=== PATIENT | male | born 1960 | race Caucasian/White ===

== ENCOUNTER 2024-12-31 16:10 | Emergency (ER) | payer BC, SELFPAY ==
[2024-12-31 16:15] VITALS: BP 137/89
--- NOTE | 2024-12-31 17:54 | ED.GENMED ---
History of Present Illness
General
Chief Complaint: Back Pain
Source: patient
Exam Limitations: none
Time Seen by Provider: 12/31/24 17:39
History of Present Illness
History of Present Illness:
64-year-old male presents with muscle pain to the right thoracic area starting yesterday after golfing. He is due for another golf tour and tomorrow. He is interested in getting a trigger point as he has had these in the past with good success.
He denies any pleuritic pain. He denies shortness of breath. No rash. No numbness. No trauma otherwise. No recent travel or surgery.
Phy Exam
Physical Exam
Physical Exam:
General: WEll appearing male NAD
MSK: Point tenderness to the right paraspinous area of the lower thoracic spine. There is palpable muscle spasm in this area. No overlying rash
Lungs are clear
Course
Vital Signs
Initial and Last Documented VS:
Initial Vital Signs
Temp Pulse Resp BP Pulse Ox
98.4 F 68 16 137/89 97
12/31/24 16:15 12/31/24 16:15 12/31/24 16:15 12/31/24 16:15 12/31/24 16:15
Last Documented Vital Signs
Temp Pulse Resp BP Pulse Ox
98.4 F 68 16 137/89 97
12/31/24 16:15 12/31/24 16:15 12/31/24 16:15 12/31/24 16:15 12/31/24 16:15
MDM/Problems Addressed
Differential Diagnosis Includes:
Patient presents with muscular strain and lower thoracic area. He has been trying anti-inflammatories without relief. He has had good success with a trigger point in the past. Explained this is only a temporary fix he understood this. The area
was identified by area of point tenderness and cleansed with saline and injected with 2 cc of 1% lidocaine and 2 cc of half percent Marcaine. Band-Aid was applied.
*Pulse Oximetry
SaO2: 97
Oxygen Mode of Delivery: Room air
Patient hypoxic: no
*Critical Care Note
Total Time (30-74mins, 75-104mins- exclusive of procedures): Not Applicable
ED Attending Note
-
Portions of this chart may have been created with voice recognition software.� Occasional wrong word or��sound alike� substitutions may have occurred due to the inherent limitations of voice recognition software.
Discharge Plan
Departure
Patient Disposition: Home (Routine Discharge)
Date of Disposition: 12/31/24
Time of Disposition: 18:00
Patient with high blood pressure during this ER visit?: No
Discharge Problem:
Muscle strain of chest wall
Instructions: Upper Back Pain (DC)
Referrals:
Ander Kaur MD [Family Provider, Internal Medicine]
Activity Restrictions/Additional Instructions:
Continue with anti-inflammatories. Use Lidoderm patch for additional pain relief. Return if worse otherwise follow-up with your doctor
Interventions
Interventions:
*Risk Screen - Suicide Last Done: 12/31/24 16:15
*Neglect/Abuse Screening Last Done: 12/31/24 16:15
Discharge Date and Time
Print Language: LATVIAN
== END 2024-12-31 18:08 | disposition home or self-care (01) ==
LOC: EMR 16:10
PROVIDERS: EMERGENCY PHYSICIAN Emergency Medicine; FAMILY PHYSICIAN Internal Medicine
DX: S29.012A Strain of muscle and tendon of back wall of thorax, initial encounter (principal); X58.XXXA Exposure to other specified factors, initial encounter; Y93.53 Activity, golf
CPT/HCPCS: 99283